=== PATIENT | male | born 2000 ===

== ENCOUNTER → 2019-03-22 | Outpatient (CLI) | payer OTHER ==
[2019-03-22 19:19] LABS: CHOL/HDL RATIO 4.7; Cholesterol 151 mg/dL (50-200); HDL Cholesterol 32 mg/dL (>39); LDL/HDL RATIO 3.1; Low Density Lipoprotein Chol 100 mg/dL (0-110); Thyroxine (T4) 7.6 ug/dL (4.5-12.1); Triglycerides 97 mg/dL (30-140); Very Low Density Lipoprot Chol 19 mg/dL (6-28)
== END ==
LOC: LAB 18:53 → LAB SHORT 18:53
PROVIDERS: Nurse Practitioner Family
DX: Z00.00 Encounter for general adult medical examination without abnormal findings (principal)
CPT/HCPCS: 80061; 84436; 84443